=== PATIENT | male | born 1960 | race Caucasian/White ===

== ENCOUNTER 2017-08-28 15:01 | Observation (INO) ==
--- NOTE | 2017-08-28 15:13 | Emergency Department Note ---
Disposition Clinical Impression: Chest pain Qualifiers: Chest pain type: unspecified Qualified Code(s): R07.9 - Chest pain, unspecified Altered mental status Qualifiers: Altered mental status type: delirium Qualified Code(s): R41.0 - Disorientation , unspecified Alcohol intoxication Qualifiers: Complication of substance-induced condition: with delirium Qualified Code(s): F10.921 - Alcohol use, unspecified with intoxication delirium Disposition: Admitted As Inpatient Condition: Fair Time of Disposition: 18:31 General Adult HPI - General Chief complaint: ED Chest Pain Stated complaint: chest pain, ETOH Time Seen by Provider: 08/28/17 15:12 Source: patient Limitations: no limitations Nursing Notes Reviewed: Yes Vital Signs Reviewed: Yes - History of Present Illness HPI Narrative: Patient planning of chest pressure that started earlier today. Radiates to his left arm. States he is extremely intoxicated has been drinking all day today. He did shortness of breath along with this. No abdominal pain. No nausea vomiting diarrhea. Pain Scale: 6 - Related Data Home Medications Medication Instructions Recorded Confirmed Pregabalin [Lyrica] 75 mg PO BID PRN 08/28/17 08/28/17 Allergies Allergy/AdvReac Type Severity Reaction Status Date / Time amlodipine AdvReac See Verified 08/28/17 15:04 Comments sumatriptan [From Imitrex] AdvReac See Verified 08/28/17 15:04 Comments All systems ED: reviewed and negative except as stated. Constitutional: Denies: fever, chills ENT ED: Denies: congestion Cardiovascular: Reports: chest pain. Denies: palpitations, dyspnea on exertion , syncope Respiratory: Reports: dyspnea. Denies: cough, wheezes Gastrointestinal: Denies: abdominal pain, nausea, vomiting, diarrhea Genitourinary: Denies: urgency, dysuria, frequency Musculoskeletal: Denies: back pain, neck pain Integumentary: Denies: rash Neurological: Denies: weakness Past Medical History - Past Medical History Attestation: Yes The following information was validated with the patient. Source: patient Medical history: Reports: hypertension, liver disease Psychiatric history: Reports: anxiety, depression - Social History Smoking Status: Never smoker Smokeless Tobacco Status: No Alcohol use: Reports: heavy, recent Drug use: Reports: none Physical Exam - General Limitations: other (Frequently does not answer my questions. Hard to get a straight story from.) General appearance: alert, in no apparent distress, appears intoxicated - Head Head exam: atraumatic, normocephalic, normal inspection - Expanded Head Exam Head exam physicial: Absent: laceration, abrasion, contusion - Eye Eye exam: Present: normal appearance, PERRL, EOMI - ENT ENT exam: normal exam, normal oropharynx, mucous membranes moist - Neck Neck exam: Present: normal inspection, full ROM, trachea midline - Chest Chest inspection: Present: normal inspection, symmetric chest wall rise - Respiratory Respiratory exam: Present: normal lung sounds bilaterally. Absent: respiratory distress, accessory muscle use - Cardiovascular Cardiovascular exam: Present: regular rate, normal rhythm, normal heart sounds - Abdominal Exam Abdominal exam: Present: soft, Non-Tender. Absent: distention, guarding, rigidity, organomegaly - Extremities Exam Extremities exam: Present: normal inspection, full ROM, normal capillary refill. Absent: tenderness, pedal edema - Back Exam Back exam: Present: normal inspection, full ROM. Absent: tenderness - Neurological Exam Neurological exam: Present: alert, oriented X3 - Psychiatric Psychiatric exam: Present: agitated - Skin Skin exam: Present: warm, dry, intact, normal color. Absent: rash Course Course Narrative: Male patient presenting to the emergency department complaining of a chest pressure sensation. States it feels like an elephant sitting on his chest. Is happened 6 months ago as well. He has no cardiac history however his brother had a massive heart attack in his 50s. He states his pain radiates up to his neck. Denies any nausea or vomiting. He reports a large amount of alcohol intake today. He reports a chronic cough. He is reports that it is due to allergies. He does take a baby aspirin every day. We will give him aspirin here as well as nitroglycerin trial him. - Reevaluation(s) Reevaluation #1: Patient is extremely intoxicated. Throughout his exam he frequently does not speak to me. His alcohol level is greater than 300. He has attempted to get up several times and fell. We will have a sitter placed beside the patient and place him in restraints. We will CT patient's head. Time: 16:29 Vital Signs Temperature 97.6 F 08/28/17 15:04 Pulse Rate 101 08/28/17 15:04 Respiratory Rate 20 08/28/17 15:04 Blood Pressure 153/110 08/28/17 15:04 O2 Sat by Pulse Oximetry 93 08/28/17 15:04 Temperature 98.4 F 08/29/17 18:25 Pulse Rate 113 08/29/17 18:25 Respiratory Rate 17 08/29/17 18:25 Blood Pressure 154/98 08/29/17 18:25 O2 Sat by Pulse Oximetry 94 08/29/17 18:25 Oxygen Delivery Oxygen Delivery Room Air Medical Decision Making - Medical Records Medical records reviewed: Yes I reviewed the patient's medical records. - Lab Data Lab results reviewed: Yes I reviewed the patient's lab results. Result diagrams: 08/29/17 03:53 08/29/17 03:53 Lab Results 08/28/17 08/28/17 08/28/17 Range/Units 15:31 15:31 17:01 WBC 5.4 (4.3-11.1) K/mcL RBC 4.76 (4.19-5.50) M/mcL Hgb 12.8 L (12.9-16.9) g/dL Hct 40.0 (37.5-50.1) % MCV 84.0 (83.0-100.0) fL MCH 26.9 L (28.0-33.3) pg MCHC 32.0 (31.6-35.5) g/dL RDW 19.1 H (11.5-14.5) % Plt Count 183 (140-400) K/mcL MPV 9.8 (9.4-12.4) fL Immature Gran % 0.2 (0-4) % Seg Neutrophils % 50.6 % Lymphocytes % 36.9 % Monocytes % 8.4 % Eosinophils % 2.8 % Basophils % 1.1 % Neutrophils # 2.7 (1.6-8.9) K/mcL Lymphocytes # 2.0 (0.6-4.6) K/mcL Monocytes # 0.5 (0.0-1.3) K/mcL Eosinophils # 0.2 (0.0-0.6) K/mcL Basophils # 0.1 (0.0-0.2) K/mcL Sodium 132 L (136-145) mEq/L Potassium 4.1 (3.5-5.1) mEq/L Chloride 102 (98-107) mEq/L Carbon Dioxide 22 L (23-29) mEq/L BUN 11 (6-20) mg/dL Creatinine 0.76 (0.70-1.30) mg/dL Est GFR ( Amer) > 60 (> 60) Est GFR (Non-Af Amer) > 60 (> 60) BUN/Creatinine Ratio 14 (6-26) Glucose 88 (70-105) mg/dL Calculated Osmolality 273 L (280-300) Calcium 8.7 (8.6-10.3) mg/dL Total Bilirubin 0.5 (0.3-1.0) mg/dL AST 58 H (13-39) Units/L ALT 44 (7-52) Units/L Alkaline Phosphatase 86 (34-104) Units/L Troponin I < 0.03 (< 0.04) ng/mL Serum Total Protein 7.7 (6.4-8.9) g/dL Albumin 4.3 (3.5-5.7) g/dL Globulin 3.4 (2.4-3.5) g/dL Albumin/Globulin Ratio 1.3 (1.1-2.2) Urine Opiates Screen Negative (Azxsbl=422) ng/mL Acetaminophen < 10 L (10-20) mcg/mL Ur Barbiturates Screen Negative (Atubwd=745) ng/mL Ur Phencyclidine Scrn Negative (Cutoff=25) ng/mL Ur Amphetamines Screen Negative (Vuqcqv=4917) ng/mL U Benzodiazepines Scrn Positive H (Zblqzy=062) ng/mL Urine Cocaine Screen Negative (Cutoff= 300) ng/mL U Marijuana (THC) Screen Negative (Cutoff = 50) ng/mL Ethyl Alcohol 321 H (Less than 10) mg/dL - Radiology Data Radiology results reviewed: Yes I reviewed the patient's radiology results. Chest X-Ray 08/28/17 15:13 IMPRESSION: No acute findings. D/ / Yuri Solis / Yuri Solis Interpreting Provider: Yuri Solis Head CT 08/28/17 16:28 IMPRESSION: No acute intracranial abnormality. Nasal bone fracture possibly acute. Clinical correlation is recommended. D/ / Dany Urban MD / Dany Urban MD Interpreting Provider: Dany Urban MD - EKG Data EKG #1 EKG attestation: Yes I reviewed and interpreted this EKG. EKG results narrative: Normal sinus rhythm at a rate of 95. NH interval is 166. QRS duration is 97. QTC is 352. QTC is 45. No signs of acute ischemia. No previous EKG to compare to.
[2017-08-28] MEDS ORDERED: Aspirin 81 MG TAB.CHEW PO STA (15:14)
--- NOTE | 2017-08-28 15:29 | Emergency Department Note ---
Disposition Clinical Impression: Chest pain Qualifiers: Chest pain type: unspecified Qualified Code(s): R07.9 - Chest pain, unspecified Altered mental status Qualifiers: Altered mental status type: unspecified Qualified Code(s): R41.82 - Altered mental status, unspecified Alcohol intoxication Qualifiers: Complication of substance-induced condition: uncomplicated Qualified Code(s): F10.920 - Alcohol use, unspecified with intoxication, uncomplicated Disposition: Admitted As Inpatient Condition: Fair Referrals: Ever Valdez MD [Family Provider] - NONE,PCP [Primary Care Provider] - Forms: ED Satisfaction Letter General Adult HPI - General Chief complaint: ED Chest Pain Stated complaint: chest pain, ETOH Time Seen by Provider: 08/28/17 15:12 Source: patient Limitations: no limitations Nursing Notes Reviewed: Yes Vital Signs Reviewed: Yes - History of Present Illness Pain Scale: 6 - Related Data Home Medications Medication Instructions Recorded Confirmed Pregabalin [Lyrica] 75 mg PO BID PRN 08/28/17 08/28/17 Allergies Allergy/AdvReac Type Severity Reaction Status Date / Time amlodipine AdvReac See Verified 08/28/17 15:04 Comments sumatriptan [From Imitrex] AdvReac See Verified 08/28/17 15:04 Comments Past Medical History - Past Medical History Medical history: Reports: hypertension, liver disease Psychiatric history: Reports: anxiety, depression - Social History Smoking Status: Never smoker Smokeless Tobacco Status: No Alcohol use: Reports: heavy, recent Drug use: Reports: none Physical Exam - General Limitations: no limitations General appearance: alert Course Vital Signs Temperature 97.6 F 08/28/17 15:04 Pulse Rate 101 08/28/17 15:04 Respiratory Rate 20 08/28/17 15:04 Blood Pressure 153/110 08/28/17 15:04 O2 Sat by Pulse Oximetry 93 08/28/17 15:04 Temperature 97.6 F 08/28/17 15:04 Pulse Rate 86 08/28/17 18:00 Respiratory Rate 20 08/28/17 18:00 Blood Pressure 114/78 08/28/17 18:00 O2 Sat by Pulse Oximetry 95 08/28/17 18:00 Oxygen Delivery Oxygen Delivery Room Air Medical Decision Making - MDM Narrative Medical decision making narrative: This documentation is done with the assistance of Dragon dictation. Despite efforts made to ensure accuracy, there may be inaccuracies in medical observer or spelling and typographical errors. I examined this patient and my medical decision-making was reviewed with the Resident Physician. I agree with the documented findings, disposition and treatment plan as described except to the extent set forth below. Patient seen and arrival with Dr. Fuller and myself, I agree with his valuation management plan supervise care the patient's stay. Patient's intoxicated he says he drinks 16-20 beers a day and has chest pressure. He is a poor historian. We will order labs and recheck he will most likely need admission. He is in agreement with plan. EKG and cardiac workup in process. 1630 hrs. Patient got up and and slipped on urine that he repeat on the floor. We are going to place him in soft restraints for his own protection have a sitter. Is not homicidal or suicidal also were not going to do a pink slip on him, where a CT his had also wait for his labs and then he will need admission. Chest X-Ray 08/28/17 15:13 IMPRESSION: No acute findings. D/ / Yuri Solis / Yuri Solis Interpreting Provider: Yuri Solis Chest X-Ray 08/28/17 15:13 IMPRESSION: No acute findings. D/ / Yuri Solis / Yuri Solis Interpreting Provider: Yuri Solis Head CT 08/28/17 16:28 IMPRESSION: No acute intracranial abnormality. Nasal bone fracture possibly acute. Clinical correlation is recommended. D/ / Dany Urban MD / Dany Urban MD Interpreting Provider: Dany Urban MD Impression is chest pain rule out ACS with alcohol intoxication. Patient's critical care time excluding separately billable procedures is 45 minutes. - Lab Data Result diagrams: 08/28/17 15:31 08/28/17 15:31 Lab Results 08/28/17 08/28/17 08/28/17 Range/Units 15:31 15:31 17:01 WBC 5.4 (4.3-11.1) K/mcL RBC 4.76 (4.19-5.50) M/mcL Hgb 12.8 L (12.9-16.9) g/dL Hct 40.0 (37.5-50.1) % MCV 84.0 (83.0-100.0) fL MCH 26.9 L (28.0-33.3) pg MCHC 32.0 (31.6-35.5) g/dL RDW 19.1 H (11.5-14.5) % Plt Count 183 (140-400) K/mcL MPV 9.8 (9.4-12.4) fL Immature Gran % 0.2 (0-4) % Seg Neutrophils % 50.6 % Lymphocytes % 36.9 % Monocytes % 8.4 % Eosinophils % 2.8 % Basophils % 1.1 % Neutrophils # 2.7 (1.6-8.9) K/mcL Lymphocytes # 2.0 (0.6-4.6) K/mcL Monocytes # 0.5 (0.0-1.3) K/mcL Eosinophils # 0.2 (0.0-0.6) K/mcL Basophils # 0.1 (0.0-0.2) K/mcL Sodium 132 L (136-145) mEq/L Potassium 4.1 (3.5-5.1) mEq/L Chloride 102 (98-107) mEq/L Carbon Dioxide 22 L (23-29) mEq/L BUN 11 (6-20) mg/dL Creatinine 0.76 (0.70-1.30) mg/dL Est GFR ( Amer) > 60 (> 60) Est GFR (Non-Af Amer) > 60 (> 60) BUN/Creatinine Ratio 14 (6-26) Glucose 88 (70-105) mg/dL Calculated Osmolality 273 L (280-300) Calcium 8.7 (8.6-10.3) mg/dL Total Bilirubin 0.5 (0.3-1.0) mg/dL AST 58 H (13-39) Units/L ALT 44 (7-52) Units/L Alkaline Phosphatase 86 (34-104) Units/L Troponin I < 0.03 (< 0.04) ng/mL Serum Total Protein 7.7 (6.4-8.9) g/dL Albumin 4.3 (3.5-5.7) g/dL Globulin 3.4 (2.4-3.5) g/dL Albumin/Globulin Ratio 1.3 (1.1-2.2) Urine Opiates Screen Negative (Afneky=707) ng/mL Acetaminophen < 10 L (10-20) mcg/mL Ur Barbiturates Screen Negative (Mcpgqo=219) ng/mL Ur Phencyclidine Scrn Negative (Cutoff=25) ng/mL Ur Amphetamines Screen Negative (Toqpks=5175) ng/mL U Benzodiazepines Scrn Positive H (Czgvti=795) ng/mL Urine Cocaine Screen Negative (Cutoff= 300) ng/mL U Marijuana (THC) Screen Negative (Cutoff = 50) ng/mL Ethyl Alcohol 321 H (Less than 10) mg/dL
[2017-08-28] MEDS ORDERED: Nitroglycerin 0.4 MG TAB.SUBL SL PRN (15:30)
[2017-08-28] MEDS: 0.9 % Sodium Chloride 1,000 ML IVC SCH ×2 (15:37→22:22)
[2017-08-28 15:42] LABS: Basophils # 0.1 K/mcL (0.0-0.2); Basophils % 1.1 %; Eosinophils # 0.2 K/mcL (0.0-0.6); Eosinophils % 2.8 %; Hemoglobin 12.8 g/dL (12.9-16.9); Immature Granulocytes % 0.2 % (0-4); Lymphocytes % 36.9 %; Mean Corpuscular Hemoglobin 26.9 pg (28.0-33.3); Mean Platelet Volume 9.8 fL (9.4-12.4); Monocytes # 0.5 K/mcL (0.0-1.3); Monocytes % 8.4 %; Neutrophils # 2.7 K/mcL (1.6-8.9); Platelet Count 183 K/mcL (140-400); Red Blood Count 4.76 M/mcL (4.19-5.50); Red Cell Distribution Width 19.1 % (11.5-14.5); Segmented Neutrophils % 50.6 %
[2017-08-28 16:13] LABS: Acetaminophen < 10 mcg/mL (10-20); Alanine Aminotransferase 44 Units/L (7-52); Albumin 4.3 g/dL (3.5-5.7); Albumin/Globulin Ratio 1.3 (1.1-2.2); Alkaline Phosphatase 86 Units/L (34-104); Aspartate Amino Transferase 58 Units/L (13-39); BUN/Creatinine Ratio 14 (6-26); Bilirubin,Total 0.5 mg/dL (0.3-1.0); Blood Urea Nitrogen 11 mg/dL (6-20); Calcium 8.7 mg/dL (8.6-10.3); Carbon Dioxide 22 mEq/L (23-29); Chloride 102 mEq/L (98-107); Ethanol 321 mg/dL (Less than 10); Globulin 3.4 g/dL (2.4-3.5); Glucose 88 mg/dL (70-105); Osmolality,Calculated 273 (280-300); Potassium 4.1 mEq/L (3.5-5.1); Sodium 132 mEq/L (136-145); Total Protein 7.7 g/dL (6.4-8.9); Troponin I < 0.03 ng/mL (< 0.04); eGFR For African Americans > 60 (> 60); eGFR For Non-African Americans > 60 (> 60)
[2017-08-28] MEDS ORDERED: Ammonia Inhalant AMPUL ONE (16:28)
[2017-08-28] MEDS ORDERED: Haloperidol Lactate 5 MG/ML VIAL IVP ONE (16:42)
[2017-08-28] MEDS ORDERED: *HR* Midazolam HCl 2 MG/2 ML VIAL IVP ONE (16:42)
[2017-08-28 17:33] LABS: Amphetamine Screen,Urine Negative ng/mL (Cutoff=1000); Barbiturate Screen,Urine Negative ng/mL (Cutoff=200); Benzodiazepines Screen,Urine Positive ng/mL (Cutoff=200); Cannabinoid Screen,Urine Negative ng/mL (Cutoff = 50); Cocaine Screen,Urine Negative ng/mL (Cutoff= 300); Opiate Screen,Urine Negative ng/mL (Cutoff=300); Phencyclidine Screen,Urine Negative ng/mL (Cutoff=25)
[2017-08-28] MEDS ORDERED: Naloxone 0.4 MG/ML INJ IVP PRN (21:25)
[2017-08-28] MEDS ORDERED: *HR* Promethazine 25 MG/ML VIAL IVP PRN (21:25)
--- NOTE | 2017-08-28 21:43 | Internal Med History&Physical ---
Date of Encounter: 08/28/17 Time of Encounter: 19:30 Assessment and Plan (1) Chest pain Current visit: Yes Status: Acute Will place the pt into Tele for observation Will place pt on cardiac rehabilitation specialist check serial troponin so far negative troponin EKG reviewed - no acute ischemic changes noticed will start pt on ASA and Nitro PRN for pain Will check FLP in AM Will get stress test in AM since pt is high risk for ACS with age, HTN and FH of CT Qualifiers: Chest pain type: unspecified Qualified Code(s): R07.9 - Chest pain, unspecified (2) Alcohol intoxication Current visit: Yes Status: Acute His Alcohol level 321 Counseled to quit drinking started him on CIWA protocol IV hydration Thiamine and Folic acid PO Also started him on KEV Librium SW consulted to discuss with pt about rehab opportunities Qualifiers: Complication of substance-induced condition: with delirium Qualified Code(s ): F10.921 - Alcohol use, unspecified with intoxication delirium (3) Altered mental status Current visit: Yes Status: Acute due to toxic encephalopathy with alcohol intoxication improved now no need of sitter or restrains at this point cont close monitoring Qualifiers: Altered mental status type: delirium Qualified Code(s): R41.0 - Disorientation, unspecified Internal Medicine - H&P: HPI Chief complaint: Chest pain, Alcohol intoxication Admitted From: Emergency Dept Plans for Post Hospital Care: Home History of present illness: Mr. Lerner is a 57 year old male with a known past medical history of peripheral neuropathy, depression and chronic alcohol dependence who presented emergency room today complaining about acute left chest wall pain 8/10 in severity, non radiating and felt like an elephant was sitting on his chest. Pt also c/o lately he has been drinking heavily, when he came to ER he was heavily intoxicated with blood alcohol level @ 321. Initially he was delirious, agitated and combative in the ER. Pt was placed on 4 point restrain and have sitter at bed side. Now he is more alert, awake and O x 3, denied any CP actively. Denied any N/V, and abdominal pain. He did mention from last 2- 3 weeks he has been having some intermittent chest pain for which he wanted to go to [facility] today. Past Med Surg Social Fam HX - Past Medical History Medical history: hypertension, liver disease Psychiatric history: anxiety, depression - Past Surgical History Surgical History: no surgical history - Social History Smoking Status: Never smoker Smokeless Tobacco Status: No Alcohol use: heavy, recent Drug use: none - Family History Brother Hx Family Cardiac Disorders: Yes (Had CT when he was 54) Internal Medicine - H&P: Meds Pregabalin [Lyrica] 75 mg PO BID PRN 08/28/17 [History] 3 Allergy/AdvReac Type Severity Reaction Status Date / Time amlodipine AdvReac See Verified 08/28/17 15:04 Comments sumatriptan [From Imitrex] AdvReac See Verified 08/28/17 15:04 Comments All Systems PM: A 10-system review of systems was performed and is negative for pertinent findings except as documented above in the HPI. Review of systems: All the systems are reviewed everything is benign except the systems and symptoms I mentioned in the history of present illness - Constitutional Vitals: Temp Pulse Resp BP Pulse Ox 98.0 F 86 16 128/81 96 08/28/17 21:15 08/28/17 21:15 08/28/17 21:15 08/28/17 21:15 08/28/17 21:15 General appearance: Present: cooperative, A&O X 3, answers questions appropriately - Head Head exam: Present: atraumatic, normal inspection - Neck Neck exam general surgery: Present: supple - Respiratory Respiratory exam: Present: decreased breath sounds. Absent: chest wall tenderness, rales, respiratory distress, rhonchi, wheezes - Cardiovascular Cardiovascular exam: Present: RRR, +S1, +S2 - GI/Abdominal GI/Abdominal exam: Present: normal bowel sounds, soft. Absent: rebound, rigid, tenderness - Extremities Exam Extremities exam: Absent: calf tenderness, pedal edema, tenderness - Back Exam Back exam: Absent: CVA tenderness (L), CVA tenderness (R) - Neurological Exam Neurological exam: Present: alert, oriented X3 - Psychiatric Psychiatric exam: Present: anxious - Skin Skin exam: Absent: rash Internal Med - H&P Results - Labs CBC & Chem 7: 08/28/17 15:31 08/28/17 15:31
[2017-08-28] MEDS: Thiamine (B-1) 100 MG TABLET PO SCH (22:22)
[2017-08-28] MEDS: Aspirin Enteric Coated 81 MG Tablet PO SCH (22:22)
[2017-08-28] MEDS: *HR* HYDROcodone/Acet 5/325 mg TABLET PO PRN (22:44)
[2017-08-28] MEDS: *HR* LORazepam 1 MG TABLET PO PRN (22:49)
[2017-08-29] MEDS: Pregabalin 75 MG CAPSULE PO PRN ×3 (00:02→20:30)
[2017-08-29] MEDS: *HR* LORazepam 2 MG/ML VIAL IVP SCH ×7 (00:02→23:41)
[2017-08-29] MEDS: Acetaminophen 325 MG TABLET PO PRN (00:04)
[2017-08-29 05:51] LABS: Basophils # 0.1 K/mcL (0.0-0.2); Basophils % 1.1 %; Eosinophils # 0.1 K/mcL (0.0-0.6); Eosinophils % 2.4 %; Hematocrit 35.3 % (37.5-50.1); Immature Granulocytes % 0.2 % (0-4); Lymphocytes # 1.9 K/mcL (0.6-4.6); Mean Corpuscular HGB Conc 31.7 g/dL (31.6-35.5); Mean Corpuscular Hemoglobin 26.9 pg (28.0-33.3); Mean Corpuscular Volume 84.9 fL (83.0-100.0); Mean Platelet Volume 10.5 fL (9.4-12.4); Monocytes # 0.4 K/mcL (0.0-1.3); Monocytes % 9.3 %; Platelet Count 169 K/mcL (140-400); Red Blood Count 4.16 M/mcL (4.19-5.50); Red Cell Distribution Width 19.6 % (11.5-14.5)
[2017-08-29 05:54] LABS: Hemoglobin 11.2 g/dL (12.9-16.9)
[2017-08-29] MEDS ORDERED: Regadenoson 0.4 MG/5 ML SYRINGE IVP ONE (05:55)
[2017-08-29 06:16] LABS: Alanine Aminotransferase 37 Units/L (7-52); Albumin 3.8 g/dL (3.5-5.7); Albumin/Globulin Ratio 1.2 (1.1-2.2); Alkaline Phosphatase 74 Units/L (34-104); Aspartate Amino Transferase 42 Units/L (13-39); BUN/Creatinine Ratio 15 (6-26); Bilirubin,Total 0.5 mg/dL (0.3-1.0); Blood Urea Nitrogen 13 mg/dL (6-20); Calcium 8.6 mg/dL (8.6-10.3); Carbon Dioxide 21 mEq/L (23-29); Chloride 108 mEq/L (98-107); Chol/HDL Ratio 2.3 (0-4.9); Cholesterol 141 mg/dL (< 200); Globulin 3.1 g/dL (2.4-3.5); Glucose 72 mg/dL (70-105); HDL Cholesterol 61 mg/dL (40-59); LDL Cholesterol,Calculated 42 mg/dL (0-99); Magnesium 2.1 mg/dL (1.6-2.6); Osmolality,Calculated 287 (280-300); Potassium 4.2 mEq/L (3.5-5.1); Sodium 139 mEq/L (136-145); Total Protein 6.9 g/dL (6.4-8.9); Triglycerides 188 mg/dL (< 150); eGFR For African Americans > 60 (> 60); eGFR For Non-African Americans > 60 (> 60)
[2017-08-29] MEDS: 0.9 % Sodium Chloride 1,000 ML IVC SCH ×2 (06:24→18:34)
[2017-08-29] MEDS: Folic Acid 1 MG TABLET PO SCH (09:30)
[2017-08-29] MEDS: Aspirin Enteric Coated 81 MG Tablet PO SCH (09:30)
[2017-08-29] MEDS: Thiamine (B-1) 100 MG TABLET PO SCH (09:30)
[2017-08-29] MEDS: *HR* HYDROcodone/Acet 5/325 mg TABLET PO PRN ×2 (11:02→18:34)
--- NOTE | 2017-08-29 14:37 | Internal Med Progress Note ---
Date of Encounter: 08/29/17 Time of Encounter: 14:30 - Assessment and plan (1) Alcohol intoxication Current Visit: Yes Status: Acute Assessment and plan: Daily drinker; patient reported drinking 20-16 ounce beers daily. Last drink day of arrival; BAL 321. Previous history of EtOH withdrawal with seizures. Expresses desire to quit drinking. Continue to monitor with CIWA. Cont librium , thiamine, folic acid. Qualifiers: Complication of substance-induced condition: with delirium Qualified Code(s ): F10.921 - Alcohol use, unspecified with intoxication delirium (2) Chest pain Current Visit: Yes Status: Acute Assessment and plan: serial troponin negative, EKG without acute ST changes. Stress test with fixed apical inferior wall defect with mild worsening during stress; mild reversible ischemia could not be excluded. Cont ASA, statin, monitor on tele. Cardiology consulted Qualifiers: Chest pain type: unspecified Qualified Code(s): R07.9 - Chest pain, unspecified (3) Altered mental status Current Visit: Yes Status: Acute Assessment and plan: Secondary to acute alcohol intoxication. Head CT non-acute. Mentation improved to baseline. No further workup indicated at this time. Supportive care. Qualifiers: Altered mental status type: delirium Qualified Code(s): R41.0 - Disorientation, unspecified (4) DVT prophylaxis Current Visit: Yes Status: Acute - Time Spent With Patient Total time spent is greater than 50% in coordination of care (as documented) at patient's floor/unit and/or counseling patient: - Subjective Interval history: Seen and examined at bedside. Patient is new to me, information obtained from chart review and patient report. Says he is feeling shaky and jittery, feels like he is in withdrawal. Last drink day of arrival. He also reports previous history of alcohol withdrawal with seizure activity. No chest pain or shortness of breath. - Constitutional Vitals: Temp Pulse Resp BP Pulse Ox 98.0 F 106 16 155/87 96 08/29/17 10:50 08/29/17 10:50 08/29/17 10:50 08/29/17 10:50 08/29/17 10:50 General appearance: Present: cooperative, A&O X 3, answers questions appropriately - Head Head exam: Present: atraumatic, normocephalic - Eye Eye exam: Present: PERRL, conjuntiva pink, sclera anicteric Pupils: Present: PERRL - Neck Neck exam general surgery: Present: supple, trachea midline. Absent: lymphadenopathy - Respiratory Respiratory exam: Present: CTAB. Absent: accessory muscle use, rales, rhonchi, wheezes - Cardiovascular Cardiovascular exam: Present: RRR, +S1, +S2. Absent: diastolic murmur, gallop, rubs, systolic murmur - GI/Abdominal GI/Abdominal exam: Present: normal bowel sounds, soft, no peritoneal signs. Absent: distended, tenderness - Extremities Exam Extremities exam: Present: warm, radial pulses palpable and symmetrical. Absent : calf tenderness, cyanotic, pedal edema - Neurological Exam Neurological exam: Present: CN II-XII intact, oriented X3, no focal deficits. Absent: pronater drift, facial droop, speech deficit - Skin Skin exam: Present: dry, intact Internal Medicine: Result - Labs CBC & Chem 7: 08/29/17 03:53 08/29/17 03:53 Labs: Short CBC 08/29/17 Range/Units 03:53 WBC 4.5 (4.3-11.1) K/mcL Hgb 11.2 L D (12.9-16.9) g/dL Hct 35.3 L (37.5-50.1) % Plt Count 169 (140-400) K/mcL Neutrophils # 2.0 (1.6-8.9) K/mcL BMP 08/29/17 03:53 Sodium 139 Potassium 4.2 Chloride 108 H Carbon Dioxide 21 L BUN 13 Creatinine 0.85 Glucose 72 Calcium 8.6 Cardiac Enzymes 08/28/17 08/29/17 Range/Units 21:50 03:53 Troponin I < 0.03 < 0.03 (< 0.04) ng/mL Liver Function 08/29/17 Range/Units 03:53 Total Bilirubin 0.5 (0.3-1.0) mg/dL AST 42 H (13-39) Units/L ALT 37 (7-52) Units/L Alkaline Phosphatase 74 (34-104) Units/L Albumin 3.8 (3.5-5.7) g/dL Consult Discharge Plan - Plan Referrals: NONE,PCP [Primary Care Provider] - Ever Valdez MD [Family Provider] -
[2017-08-29] MEDS: *HR* LORazepam 1 MG TABLET PO PRN (18:34)
--- NOTE | 2017-08-29 19:23 | Electrocardiograph Report ---
[place] [id number] Test Date: 2017-08-28 Pat Name: Dangelo Lerner Department: 103 Room: 3B11 Gender: M [employer]: : 1960 Requested By: Salvatore Stein Order Number: [id number] Reading MD: See Bird Measurements Intervals [place] Rate: 95 P: 11 MI: 166 QRS: -18 QRSD: 97 T: 12 QT: 352 QTc: 405 Interpretive Statements SINUS RHYTHM Electronically Signed On 08-29-2017 19:22:31 EDT by See Bird
[2017-08-29] MEDS: *HR* Heparin 5,000 UNIT/ML VIAL SQ SCH (20:18)
[2017-08-30] MEDS: *HR* HYDROcodone/Acet 5/325 mg TABLET PO PRN ×3 (01:27→21:56)
[2017-08-30] MEDS: *HR* LORazepam 1 MG TABLET PO PRN ×2 (01:32→21:55)
[2017-08-30] MEDS ORDERED: *HR* LORazepam 2 MG/ML VIAL IVP PRN ×2 (02:41)
[2017-08-30] MEDS: *HR* LORazepam 2 MG/ML VIAL IVP PRN ×2 (02:58→11:16)
[2017-08-30] MEDS: 0.9 % Sodium Chloride 1,000 ML IVC SCH (05:07)
[2017-08-30] MEDS: *HR* Heparin 5,000 UNIT/ML VIAL SQ SCH ×3 (05:08→22:02)
[2017-08-30] MEDS: Aspirin Enteric Coated 81 MG Tablet PO SCH (08:30)
[2017-08-30] MEDS: Folic Acid 1 MG TABLET PO SCH (08:30)
[2017-08-30] MEDS: Thiamine (B-1) 100 MG TABLET PO SCH (08:30)
[2017-08-30 08:51] LABS: Estimated Average Glucose 103 mg/dl; Hemoglobin A1C 5.2 %
[2017-08-30] MEDS ORDERED: Metoprolol XL (24 HR) Succ 25 MG TAB.ER.24H PO SCH (09:00)
--- NOTE | 2017-08-30 10:30 | Internal Med Progress Note ---
Date of Encounter: 08/30/17 Time of Encounter: 10:26 - Assessment and plan (1) Alcohol intoxication Current Visit: Yes Status: Acute Assessment and plan: Daily drinker; patient reported drinking 20-16 ounce beers daily. Last drink day of arrival; BAL 321. Previous history of EtOH withdrawal with seizures. Expresses desire to quit drinking. Continue to monitor with CIWA. Cont thiamine , folic acid. Qualifiers: Complication of substance-induced condition: with delirium Qualified Code(s ): F10.921 - Alcohol use, unspecified with intoxication delirium (2) Chest pain Current Visit: Yes Status: Acute Assessment and plan: presented with chest pain and SOB. No Known CAD. serial troponin negative, EKG without acute ST changes. Stress test with fixed apical inferior wall defect with mild worsening during stress; mild reversible ischemia could not be excluded. Cont ASA, BB, statin, monitor on tele. Cardiology consulted Qualifiers: Chest pain type: unspecified Qualified Code(s): R07.9 - Chest pain, unspecified (3) Essential hypertension Current Visit: Yes Status: Acute Assessment and plan: per hx. BP controlled, likely secondary to not having home medications. Resume home BB. Monitor BP and titrate PRN (4) Altered mental status Current Visit: Yes Status: Acute Assessment and plan: Secondary to acute alcohol intoxication. Head CT non-acute. Mentation improved to baseline. No further workup indicated at this time. Supportive care. Qualifiers: Altered mental status type: delirium Qualified Code(s): R41.0 - Disorientation, unspecified (5) DVT prophylaxis Current Visit: Yes Status: Acute Assessment and plan: heparin - Time Spent With Patient Total time spent is greater than 50% in coordination of care (as documented) at patient's floor/unit and/or counseling patient: - Subjective Interval history: Seen and examined at bedside. Patient is new to me, information obtained from chart review and patient report. Says he is feeling shaky and jittery, feels like he is in withdrawal. Last drink day of arrival. He also reports previous history of alcohol withdrawal with seizure activity. No chest pain or shortness of breath. - Constitutional Vitals: Temp Pulse Resp BP Pulse Ox 97.7 F 88 18 147/95 98 08/30/17 06:54 08/30/17 06:54 08/30/17 06:54 08/30/17 09:33 08/30/17 06:54 General appearance: Present: cooperative, A&O X 3, answers questions appropriately - Head Head exam: Present: atraumatic, normocephalic - Eye Eye exam: Present: PERRL, conjuntiva pink, sclera anicteric Pupils: Present: PERRL - Neck Neck exam general surgery: Present: supple, trachea midline. Absent: lymphadenopathy - Respiratory Respiratory exam: Present: CTAB. Absent: accessory muscle use, rales, rhonchi, wheezes - Cardiovascular Cardiovascular exam: Present: RRR, +S1, +S2. Absent: diastolic murmur, gallop, rubs, systolic murmur - GI/Abdominal GI/Abdominal exam: Present: normal bowel sounds, soft, no peritoneal signs. Absent: distended, tenderness - Extremities Exam Extremities exam: Present: warm, radial pulses palpable and symmetrical. Absent : calf tenderness, cyanotic, pedal edema - Neurological Exam Neurological exam: Present: CN II-XII intact, oriented X3, no focal deficits. Absent: pronater drift, facial droop, speech deficit - Skin Skin exam: Present: dry, intact Internal Medicine: Result - Labs CBC & Chem 7: 08/29/17 03:53 08/29/17 03:53 Consult Discharge Plan - Plan Referrals: Ever Valdez MD [Family Provider] - NONE,PCP [Primary Care Provider] -
--- NOTE | 2017-08-30 10:57 | Cardiology Consult Note ---
<Bigg Becerril - Last Filed: 08/30/17 10:50> Date of Encounter: 08/30/17 Time of Encounter: 10:50 Assessment and Plan (1) Abnormal stress test Current Visit: Yes Status: Acute Stress test showed primarily fixed apical inferior wall defect with mild worsening during stress. Mild reversible ischemia cannot be excluded. Gated EF 60%. Presents with typical chest pain symptoms--midsternal pressure with left side radiation, worse on exertion associated with nausea. Risk factors--HTN, HLD, family hx. Reports brother had TN at age 52 with 3 stents. States he had a LHC 6-7 years ago, reported 30% blockage at that time. Recommend [facility] to further evaluate--R/B/A discussed. Check TTE as well. Continue ASA, Statin, BB. (2) Alcohol dependence Current Visit: Yes Status: Acute Reports drinking 20+ 16 oz cans of beer/day. Gated EF on stress 60%. Check TTE. CIWA protocol. AST mildly elevated, ALT normal range. Qualifiers: Substance use status: unspecified alcohol-induced disorder Qualified Code(s ): F10.29 - Alcohol dependence with unspecified alcohol-induced disorder (3) Chest pain Current Visit: Yes Status: Acute As above, typical symptoms, abnormal stress test, plan for LHC today. Qualifiers: Chest pain type: unspecified Qualified Code(s): R07.9 - Chest pain, unspecified (4) Essential hypertension Current Visit: Yes Status: Acute Hypertensive, not currently at goal, but going through withdraws. Will adjust antihypertensives as necessary. Discussion w patient/family: The assessment and plan as outlined above was discussed with the patient and/or family members who expressed understanding and agreement. All questions were answered. Thank you for involving us in the care of your patient. Please call with any questions. I will discuss all the above with Dr. Galvin and make changes as necessary. History of Present Illness Consult date: 08/30/17 Requesting physician: Wilma Potter Consult reason: abnormal stress test Chief complaint: chest pain History of present illness: Mr. Lerner is a 57 year old male with PMH of peripheral neuropathy, depression , HTN, HLD and chronic alcohol dependence that drinks 20+ 16 oz cans of beer/ day who presented to ED with chief complaint of midsternal pain radiating to left side of neck associated with nausea. ETOH level 321 in ED. Initially he was delirious, agitated and combative in the ER. Pt was placed on 4 point restrain and have sitter at bed side. Now he is alert, awake and O x 3, denies any CP actively. Reports the chest pain was intermittent for a few days prior to admission, worse on exertion and improved with rest. Reports he had a LHC 6- 7 years ago with a 30% blockage. States his brother had a massive TN at age 52 with 3 stents. Troponins negative. Stress test obtained--primarily fixed apical inferior wall defect with mild worsening during stress. Mild reversible ischemia cannot be excluded. Gated EF 60%. Cardiology consulted for further recommendations. Past Med Surg Social Fam HX - Past Medical History Medical history: hypertension, liver disease Psychiatric history: anxiety, depression - Past Surgical History Surgical History: no surgical history - Social History Smoking Status: Never smoker Smokeless Tobacco Status: No Alcohol use: heavy, recent Drug use: none - Family History Brother Hx Family Cardiac Disorders: Yes (Had TN when he was 52) Medications and Allergies Pregabalin [Lyrica] 75 mg PO BID PRN 08/28/17 [History] 3 Allergy/AdvReac Type Severity Reaction Status Date / Time amlodipine AdvReac See Verified 08/28/17 15:04 Comments sumatriptan [From Imitrex] AdvReac See Verified 08/28/17 15:04 Comments All Systems Review: The remainder of the systems were reviewed and are negative - Cardiovascular Cardiovascular: as per HPI, chest pain with exertion, dyspnea on exertion, radiating jaw, neck or arm pain - Gastrointestinal Gastrointestinal: nausea Physical Examination Vital Signs, Last 4 Hours Temp Pulse Resp BP Pulse Ox 08/30/17 09:33 147/95 08/30/17 06:54 97.7 F 88 18 166/110 98 Vital Signs Temp Pulse Resp BP Pulse Ox 08/30/17 09:33 147/95 08/30/17 06:54 97.7 F 88 18 166/110 98 08/30/17 02:54 98.3 F 90 17 158/102 94 08/29/17 23:32 97.4 F L 102 18 172/102 97 08/29/17 18:25 98.4 F 113 17 154/98 94 Intake and Output 08/29/17 08/30/17 08/30/17 23:59 07:59 15:59 Intake Total 240 / 240 1000 / 1000 480 / 480 Balance 240 / 240 1000 / 1000 480 / 480 Intake: IV Fluids 1000 / 1000 0.9 % Sodium Chloride 1,000 ML 1000 / 1000 @ 125 mls/hr IVC .Q8H [facility] Rx#: [id number] Oral 240 / 240 480 / 480 Other: Meal Dinner Breakfast Percent of Meal Consumed 100% 100% # Voids 1 Weight 112.4 kg Patient Weight 08/30/17 23:59 Weight 112.4 kg General: Conversant, No Apparent Distress HEENT: Atraumatic, Normocephaly, Mucus Membranes Moist Neck: No JVD, Normal carotid pulses Cardiac: Reg Rate and Rhythm, Normal S1 and S2, No Murmur Lungs: Normal Breath Sounds, No Wheeze, Rales, Rhonchi Neuro: Alert and responsive, No focal deficits noted Abdomen: Soft, Non-Tender Skin: No rashes noted on visualized skin Musculoskeletal: No Chest Wall Tenderness Extremities: Other (LLE >RLE ) Results 08/29/17 03:53 08/29/17 03:53 Active Medications Acetaminophen (Tylenol) 650 mg PO Q6HR PRN PRN Reason: Mild Pain/Fever Stop: 02/27/18 21:26 Last Admin: 08/29/17 00:04 Dose: 650 mg Hydrocodone Bitart/Acetaminophen ([place]e 5-325 Mg) 1 tab PO Q6HR PRN PRN Reason: Moderate Pain Stop: 02/27/18 21:26 Last Admin: 08/30/17 01:27 Dose: 1 tab Aspirin (Aspirin Ec) 81 mg PO DAILY [facility] Stop: 02/27/18 21:31 Last Admin: 08/30/17 08:30 Dose: 81 mg Atorvastatin Calcium (Lipitor) 10 mg PO HS [facility] Stop: 02/28/18 21:01 Last Admin: 08/29/17 20:17 Dose: 10 mg Carvedilol (Coreg) 12.5 mg PO BIDWM KEV PRN Reason: Protocol Stop: 03/01/18 17:01 Chlordiazepoxide HCl (Librium) 25 mg PO QID [facility] Stop: 02/28/18 09:01 Last Admin: 08/30/17 08:30 Dose: 25 mg Folic Acid (Folic Acid) 1 mg PO DAILY [facility] Stop: 02/28/18 09:01 Last Admin: 08/30/17 08:30 Dose: 1 mg Heparin Sodium (Porcine) (Heparin) 5,000 unit SQ Q8HCO [facility] Stop: 02/28/18 22:01 Last Admin: 08/30/17 05:08 Dose: 5,000 unit Hydralazine HCl (Hydralazine) 10 mg IVP Q6HR PRN PRN Reason: HTN: SBP>160 or DBP>100 Stop: 03/01/18 03:17 Last Admin: 08/30/17 08:30 Dose: 10 mg Lorazepam (Ativan) 1 mg PO Q3HR PRN PRN Reason: Anxiety Stop: 02/27/18 21:33 Last Admin: 08/30/17 01:32 Dose: 1 mg Lorazepam (Ativan) 1 mg IVP Q1H PRN PRN Reason: Alcohol Withdrawal Stop: 03/01/18 02:42 Lorazepam (Ativan) 2 mg IVP Q4HR PRN PRN Reason: CIWA Score of 10-21 Stop: 03/01/18 02:42 Last Admin: 08/30/17 02:58 Dose: 2 mg Lorazepam (Ativan) 4 mg IVP Q4HR PRN PRN Reason: CIWA Score of 22-45 Stop: 03/01/18 02:42 Naloxone HCl (Narcan) 0.4 mg IVP Q2MIN PRN PRN Reason: SEE COMMENTS Stop: 02/27/18 21:26 Nitroglycerin (Nitroglycerin) 0.4 mg SL Q5MIN PRN PRN Reason: Chest Pain Stop: 02/27/18 15:31 Ondansetron HCl (Zofran) 4 mg IVP Q8HR PRN PRN Reason: Nausea And Vomiting Stop: 02/27/18 21:26 Pregabalin (Lyrica) 75 mg PO BID PRN PRN Reason: NEUROPATHY Stop: 02/27/18 21:29 Last Admin: 08/29/17 20:30 Dose: 75 mg Promethazine HCl (Phenergan) 12.5 mg IVP Q6HR PRN PRN Reason: Nausea And Vomiting Stop: 02/27/18 21:26 Thiamine HCl (Vitamin B-1) 100 mg PO DAILY [facility] Stop: 02/27/18 21:31 Last Admin: 08/30/17 08:30 Dose: 100 mg - Imaging and Cardiology Stress Test: report reviewed - EKG Interpretation EKG results cardiology: personally reviewed (SR, rate 95, normal ECG.), other ( 12 hr tele AVG HR 92, SR, no significant pauses or arrhythmias) Consult Discharge Plan - Plan Referrals: Ever Valdez MD [Family Provider] - NONE,PCP [Primary Care Provider] - <Sourav Galvin - Last Filed: 08/30/17 13:03> Date of Encounter: 08/30/17 - Attending Attestation I have personally performed a face to face evaluation on this patient. I have reviewed and agree with the care plan. History and Exam by me shows: Typical angina with strong family hx and abnormal stress test R/B/A d/w patient and he agrees to procced with [facility] Assessment and Plan Discussion w patient/family: The assessment and plan as outlined above was discussed with the patient and/or family members who expressed understanding and agreement. All questions were answered. Thank you for involving us in the care of your patient. Please call with any questions. History of Present Illness History of present illness: Mr. Lerner is a 57 year old male All Systems Review: The remainder of the systems were reviewed and are negative Physical Examination Vital Signs, Last 4 Hours Temp Pulse Resp BP Pulse Ox 08/30/17 11:21 97.4 F L 94 18 176/108 98 08/30/17 11:18 98.3 F 67 20 121/63 97 08/30/17 09:33 147/95 Results 08/29/17 03:53 08/29/17 03:53 Lab Results 08/30/17 11:23 INR 1.1
[2017-08-30 12:05] LABS: INR 1.1; Prothrombin Time 11.6 Seconds (9.4-12.1)
[2017-08-30] MEDS ORDERED: *HR* Heparin 10,000 UNIT/10 ML VIAL ONE (15:10)
[2017-08-30] MEDS ORDERED: 0.9 % Sodium Chloride 1,000 ML ONE ×2 (15:10→15:44)
[2017-08-30] MEDS ORDERED: ISOVUE-370 200 ML INFUS..BTL IV ONE (15:10)
[2017-08-30] MEDS ORDERED: Heparin 1,000 UNITS/500 mL 500 ML ONE (15:10)
[2017-08-30] MEDS ORDERED: Verapamil 5 MG/2 ML VIAL ONE (15:53)
[2017-08-30] MEDS ORDERED: Nitroglycerin 1,000 MCG/10 ML VIAL IV ONE (15:53)
[2017-08-30] MEDS ORDERED: *HR* Midazolam HCl 2 MG/2 ML VIAL ONE ×2 (15:53→16:17)
[2017-08-30] MEDS ORDERED: *HR* FentaNYL (PF) 100 MCG/2 ML VIAL ONE (15:53)
--- NOTE | 2017-08-30 15:53 | Pre-Sedation Evaluation ---
Pre-sedation evaluation - Pre-sedation checklist Date of procedure: 08/30/17 Procedure: Heart cath Recent Vitals: Last Vital Signs Temp 97.4 F L 08/30/17 11:21 Pulse 94 08/30/17 11:21 Resp 18 08/30/17 11:21 BP 176/108 08/30/17 11:21 Pulse Ox 98 08/30/17 11:21 H&P (including ROS) documented in medical record: Yes Previous reaction to sedatives/anesthetics: No Dietary Status: No solid food in preceding 4 hrs and no liquid in preceding 2 hrs ASA Classification *see protocol: CLASS II-Mild systemic disease Plan of Care: Pt appropriate candidate for procedure/moderate/conscious sedation , Risks/benefits of procedure/sedation discussed w/ patient/family
--- NOTE | 2017-08-30 16:50 | Invasive Diagnostic Lab Proc ---
Name: Dangelo Lerner Date of Study: 08/30/2017 Date: 1960 Ht: 70.9in Medical Record#: [id number] Age: 57 Wt: 246.92lb Gender: Male BSA: 2.3 Order #: [id number] BMI: 34.57 Physicians Procedure Physician: See Bird MD, [facility] Referring MD: Referring MD: Staff Name Position Time In Ioana, Dieudonne ROGERS International Account Manager 03:22 PM Tonya Laughlin RT (R) Monitor 03:22 PM Christian Peraza RT (R) Scrub 03:23 PM Indications Indication Unstable Angina Procedures Performed Procedure L HRT ARTERY/VENTRICLE ANGIO Pre-Procedure Checklist Informed consent is complete signed and on chart. H&P is on chart. ID band is on and ID verified with patient. Patient NPO for procedure The procedure was described for the patient and questions were answered. ECG is on chart. Plan of Care Patient will tolerate the procedure without complications. Adequate level of comfort will be maintained. Hemodynamics will remain stable Patient will recover from procedure without complications. Respiratory function will be maintained. Cardiac rhythm will remain stable. Patient temperature will be maintained. Patient and/or family have verbalized understanding of the procedure. Patient Education Chief Complaint/Reason for Test: Cardiac Cath Developmental Category: Adult (18-64 years) Developmentally Appropriate for Age: Yes Learning Barriers: None Education Needs: Procedure Education Method: Verbal Information Taught: Cardiac Cath Educational Evaluation: Able to repeat information Intravenous Access Time IV Size Location DC'd Fluid/Drip Rate Units RN 20g 1 06/01" Patent On Arrival 0.9NaCl ml/hr Allergies amlodipine sumatriptan Vital Signs Time BP (mmHg) HR (bpm) O2 Sat. RR (bpm) LOC 176 / 108 94 98 % 18 5 = Fully awake and oriented or at pre-proc level 04:02 PM / % 5 = Fully awake and oriented or at pre-proc level 04:02 PM / % 5 = Fully awake and oriented or at pre-proc level 04:18 PM / % 5 = Fully awake and oriented or at pre-proc level 04:05 PM 177 / 107 80 99 % 9 04:09 PM 176 / 115 82 97 % 10 04:14 PM 180 / 108 80 99 % 10 04:19 PM 190 / 117 81 100 % 9 04:23 PM 169 / 109 89 98 % 14 04:24 PM 165 / 107 86 96 % 11 04:29 PM 165 / 101 90 99 % 12 Procedural Medications Time Medication Dose Units Method Given By 04:00 PM Oxygen 2 L/min nasal cannula Dieudonne Triplett RN 04:00 PM Versed 2 mg Intravenous Dieudonne Triplett RN 04:01 PM Fentanyl 50 mcg Intravenous Dieudonne Triplett RN 04:16 PM Lidocaine 2% 0.5 ml Subcutaneous See Bird MD, FAC 04:18 PM Versed 2 mg Intravenous Dieudonne Triplett RN 04:18 PM Fentanyl 25 mcg Intravenous Dieudonne Triplett RN 04:20 PM Heparin 4000 units Nitroglycerin 200 mcg Verapamil 2.5 mg Intraarterial See Bird MD, FAC 04:23 PM Hydralazine 10 mg Intravenous Dieudonne Triplett RN ASA Classification: CLASS II- Mild systemic disease (i.e. well-controlled diabetes, hypertension, asthma, cigarette smoking) Julia Score Preprocedure Postprocedure Activity 2- Moves 4 extremities sustained head lift Activity 2- Moves 4 extremities sustained head lift Circulation 2- SBP +/= 20 points of pre-anesthetic level Circulation 2- SBP +/= 20 points of pre-anesthetic level Consciousness 2- Awake and alert oriented x 3 Consciousness 2- Awake and alert oriented x 3 O2 Saturation 2- Able to maintain O2 satruation of 92% on room air O2 Saturation 2- Able to maintain O2 satruation of 92% on room air Respiratory 2- Able to deep breathe and cough well Respiratory 2- Able to deep breathe and cough well Total Score 10 Total Score 10 Contrast Agent: Isovue Diagnostic Contrast: 61 ml Total Contrast: 61 ml Fluoro Dose: 237 mGy Procedure Log Time Note Enter By 03:12 PM CathStat 03:22 PM Dieudonne Triplett RN Position: International Account Manager Time in: 15: [email or web address] 03:23 PM Tonya Laughlin RT (R) Position: Monitor Time in: : dspell 03:23 PM Christian Peraza RT (R) Position: Scrub Time in: 15:23 [email or web address] 03:23 PM Patient charges- Angio tray pack, Navilyst 3mm J, Pulse Oximetry and ACIST tubing and transducer [email or web address] 03:23 PM IV Supplies used: J loop Angio Cath. dspell 03:24 PM Case Delayed No,inpatient dspell 03:58 PM Physician arrived 15:58 :58 PM Meet and greet completed :58 PM Sign in performed according to hospital policy. :58 PM Procedure start 15:58 03:59 PM Case Start 03:59 PM Hair removed from procedure site in procedure lab using clippers. Right wrist, right groin prepped with Chloraprep by Tonya Laughlin RT (R), then patient was draped. Skin intact. 04:00 PM Time: 16:00 Oxygen on at 2 L/min per nasal cannula by Dieudonne Triplett RN : PM Time: 16:00 Versed 2 mg Intravenous Given by Dieudonne Triplett RN [facility]: PM Time: 16:01 Fentanyl 50 mcg Intravenous Given by Dieudonne Triplett RN [facility]:02 PM ASA Class CLASS II- Mild systemic disease (i.e. well-controlled diabetes, hypertension, asthma, cigarette smoking) PM Time: 16:02 Patient comfortable and pain free: Yes PM Time: 16:02LOC: 5 = Fully awake and oriented or at pre-proc level dsp 04:02 PM Clinical Presentation: Unstable angina 04:03 PM Vitals capture started with the following parameters, Patient=Adult, Interval=5 min, Initial Hiefybxc=848 mmHg, Deflation Rate=3 mmHg, Cuff placed on Right Arm 04:05 PM Pressure channel 1 zero failed. 04:05 PM HR=80 bpm, VKKU=270/107 mmhg, SpO2=99.0 %, Resp=9 B/min, Comment=NSR 04:05 PM Pressure channel 1 zeroed. 04:09 PM HR=82 bpm, XSNY=701/115 mmhg, SpO2=97.0 %, Resp=10 B/min, Comment=NSR 04:14 PM HR=80 bpm, HFRH=985/108 mmhg, SpO2=99.0 %, Resp=10 B/min, Comment=NSR 04:16 PM Time out performed according to hospital policy 16 PM Time: 16:16 0.5 ml Lidocaine 2% to right radial Subcutaneous Given by See Bird MD, [facility] :17 PM Time: 16:02 Patient comfortable and pain free: Yes adam:18 PM Time: 16:02LOC: 5 = Fully awake and oriented or at pre-proc level dsp:18 PM Time: 16:18 Versed 2 mg Intravenous Given by Dieudonne Triplett RN [email or web address] 04:18 PM Time: 16:18 Fentanyl 25 mcg Intravenous Given by Dieudonne Triplett RN kimi :19 PM Ultrasound used for access dspell:19 PM HR=81 bpm, QXVN=521/117 mmhg, CaR4=629.0 %, Resp=9 B/min, Comment=NSR 04:20 PM Access obtained by percutaneous puncture. 6Fr 10cm Terumo Glidesheath sheath placed in right Radial artery. [id number] : PM Time: 16:20 Patient given 4,000 units Heparin, 200 mcg Nitroglycerin, and 2.5 mg Verapamil Intraarterial by See Bird MD, [facility]. This is given to reduce risk of vessel spasm and thrombosis. : PM 5Fr TIG catheter inserted over the wire [facility] : PM NIBP STAT measurement started. 04:22 PM Pressure channel 1 zeroed. 04:23 PM Recorded Pressure: Ao, HR=88, Condition=Condition 1 (Aorta) Ao 166/110/136 04:23 PM HR=89 bpm, VUTK=438/109 mmhg, SpO2=98.0 %, Resp=14 B/min, Comment=NSR 04:23 PM Time: 16:23 Hydralazine 10 mg Intravenous Given by Dieudonne Triplett RN [facility]:24 PM LCA angiography performed in FRENCH views. :24 PM Recorded Pressure: Ao, HR=84, Condition=Condition 1 (Aorta) Ao 158/120/138 04:24 PM RCA angiography performed in multiple. dspell:24 PM HR=86 bpm, FEVQ=178/107 mmhg, SpO2=96.0 %, Resp=11 B/min, Comment=NSR 04:25 PM Catheter removed dspell:25 PM 5Fr FL 3.5 catheter inserted over the wire [facility] :25 PM LCA angiography performed in multiple views. ell: PM Recorded Pressure: Ao, HR=84, Condition=Condition 1 (Aorta) Ao 167/102/131 04:26 PM Recorded Pressure: Ao, HR=87, Condition=Condition 1 (Aorta) Ao 165/105/132 04:27 PM Lesion found in Proximal LAD. Pre Stenosis: 20 Pre RAYMUNDO Flow: 3: Complete and Brisk Flow/Perfusion dspell 04:27 PM Coronary Dominance: right [email or web address] 04:28 PM Recorded Pressure: LV, HR=89, Condition=Condition 1 (Left Ventricle) LV 175/4/24 04:28 PM Recorded Pressure: LV, Ao, HR=89, Condition=Condition 1 (Left Ventricle) LV 167/4/20, (Aorta) Ao 174/108/138 04:29 PM Catheter selectively placed in left ventricle dspell 04:29 PM HR=90 bpm, QWRD=896/101 mmhg, SpO2=99.0 %, Resp=12 B/min, Comment=NSR 04:30 PM Bolus angiogram of left Ventricle complete: 10 ml/sec for a total of 30 mls dspell 04:30 PM Catheter removed dspell 04:30 PM Procedure completed at 16:30 [email or web address] 04:30 PM Did you address RAYMUNDO flow and Dominance? Yes dspell 04:31 PM Sign out completed: Radiation Dose 236.79 mGy Fluoro Time: 2.1 Isovue 370 - 200ml contrast 61 ml given by See Bird MD, [facility]. Complications: NoneCardiac Rehab Consult needed: NoConfirmed administered medications: Yes dspell 04:31 PM Isovue 370 - 200ml,1 Bottle(s) used. dspell 04:31 PM Arterial sheath pulled, Vasc Band closure device used and was Successful S/N. dspell 04:31 PM 13 ml air in Vasc Band. dspell 04:31 PM Estimated Blood Loss: minimal dspell 04:31 PM Post ECG NSR dspellman 04:32 PM Post Blood Pressure 165/101 dspell 04:32 PM 16:32 Post Pulses Rt Radial 2+ dspell 04:32 PM Information taught Cardiac Cath and Vasc Band dspell 04:32 PM Education needs Procedure, Plan of Care, and Responsibilities of Patient in Care dspell 04:32 PM Learning barriers :None dspell 04:33 PM Education Methods Verbal dspell 04:33 PM Education evaluation Able to repeat information dspell 04:33 PM Site status No bleeding/hematoma - Rt Wrist as reported by Christian Peraza RT (R) at 16:33 dspell 04:33 PM Opsite applied dspell 04:33 PM Hematoma? No. dspell 04:33 PM Delay to floor No dspell 04:33 PM Time: 16:18LOC: 5 = Fully awake and oriented or at pre-proc level dspell 04:33 PM Complications: None dspell 04:33 PM Fluoro Time: 2.1 dsp 04:34 PM Isovue 370 - 200ml contrast [address] Bird. ell 04:34 PM Radiation Dose 236.79 mGy dspell 04:39 PM Patient out of room: 16:39 dspell 04:43 PM Report given to Hanane ROGERS [facility] Complication None None Hemodynamics Pressures Site Systolic/A Wave Diastolic/V Wave Mean AO 166 110 136 AO 158 120 138 AO 167 102 131 AO 165 105 132 LV 175 4 24 LV 167 4 20 AO 174 108 138 Post Procedure Information Blood Pressure: 165/101 mmHg Rhythm: NSR Closure Device Time Device Success/Fail 08/30/2017 4:43:00 PM Mechanical Compression Successful Site Checks Time Location Status Staff Sheath In? Note 04:33 PM Rt Wrist No bleeding/hematoma Christian Peraza RT (R) Pulses Time Site Pre-Procedure Post-Procedure Note Bilateral DP & PT 2+ Bilateral radial 2+ 4:32:00 PM Rt Radial 2+ Updated by Tonya Laughlin RT (R) on 08/30/2017 4:44:03 PM Tonya Laughlin RT electronically signed on 08/30/2017 4:44:43 PM with status of Final
[2017-08-30] MEDS ORDERED: *HR* OxyCODONE Immed Rel 5 MG TABLET PO ONE (17:10)
[2017-08-30] MEDS ORDERED: cloNIDine HCl 0.1 MG TABLET PO ONE (18:23)
[2017-08-30] MEDS: Ondansetron 4 MG/2 ML VIAL IVP PRN (19:02)
[2017-08-31] MEDS: *HR* LORazepam 2 MG/ML VIAL IVP PRN ×3 (00:11→08:12)
[2017-08-31] MEDS: Pregabalin 75 MG CAPSULE PO PRN (00:18)
[2017-08-31] MEDS: *HR* HYDROcodone/Acet 5/325 mg TABLET PO PRN ×2 (03:54→10:25)
[2017-08-31] MEDS: *HR* Heparin 5,000 UNIT/ML VIAL SQ SCH ×2 (06:48→12:47)
[2017-08-31 07:51] LABS: BUN/Creatinine Ratio 8 (6-26); Blood Urea Nitrogen 6 mg/dL (6-20); Calcium 9.1 mg/dL (8.6-10.3); Carbon Dioxide 23 mEq/L (23-29); Chloride 107 mEq/L (98-107); Chol/HDL Ratio 2.5 (0-4.9); Cholesterol 141 mg/dL (< 200); Glucose 97 mg/dL (70-105); HDL Cholesterol 56 mg/dL (40-59); LDL Cholesterol,Calculated 58 mg/dL (0-99); Osmolality,Calculated 280 (280-300); Potassium 3.6 mEq/L (3.5-5.1); Sodium 136 mEq/L (136-145); Triglycerides 133 mg/dL (< 150); eGFR For African Americans > 60 (> 60); eGFR For Non-African Americans > 60 (> 60)
[2017-08-31 07:53] LABS: Hemoglobin 10.6 g/dL (12.9-16.9); Mean Corpuscular HGB Conc 31.2 g/dL (31.6-35.5); Mean Corpuscular Hemoglobin 26.7 pg (28.0-33.3); Mean Corpuscular Volume 85.6 fL (83.0-100.0); Mean Platelet Volume 11.6 fL (9.4-12.4); Platelet Count 117 K/mcL (140-400); Red Blood Count 3.97 M/mcL (4.19-5.50); Red Cell Distribution Width 19.1 % (11.5-14.5)
[2017-08-31] MEDS: Thiamine (B-1) 100 MG TABLET PO SCH (08:09)
[2017-08-31] MEDS: Folic Acid 1 MG TABLET PO SCH (08:09)
[2017-08-31] MEDS: Aspirin Enteric Coated 81 MG Tablet PO SCH (08:09)
[2017-08-31] MEDS: Acetaminophen 325 MG TABLET PO PRN ×2 (08:11→14:14)
[2017-08-31] MEDS: Ondansetron 4 MG/2 ML VIAL IVP PRN (08:12)
--- NOTE | 2017-08-31 08:25 | Event Note ---
Date of Encounter: 08/31/17 Time of Encounter: 08:24 - Cardiology Event Note LHC yesterday minimal CAD. No intervention warranted. EF 55%. TTE still pending. Cardiology signing off. Reconsult PRN or if abnormal findings on echo. Continue ASA, Statin, BB.
[2017-08-31] MEDS: *HR* LORazepam 1 MG TABLET PO PRN ×2 (10:25→14:14)
[2017-08-31 11:16] VITALS: BP 150/107
--- NOTE | 2017-08-31 14:57 | Discharge Summary ---
Orders not resulted at time of discharge: Pending orders 08/28/17 21:29 NM mitzy perf SPECT multi [NM] Routine Date of Encounter: 08/31/17 Time of Encounter: 14:54 - Discharge Diagnosis (1) Alcohol intoxication Priority: Primary Status: Acute Comments: Daily drinker; patient reported drinking 20-16 ounce beers daily. Last drink day of arrival; BAL 321. Previous history of EtOH withdrawal with seizures. Monitored with [facility] while inpatient. Expresses desire to quit drinking. Transfer to [place] for inpatient alcohol treatment. Qualifiers: Complication of substance-induced condition: with delirium Qualified Code(s ): F10.921 - Alcohol use, unspecified with intoxication delirium (2) Chest pain Priority: Primary Status: Acute Comments: presented with chest pain and SOB. No Known CAD. serial troponin negative, EKG without acute ST changes. Stress test with fixed apical inferior wall defect with mild worsening during stress; mild reversible ischemia could not be excluded. 08/30/17 [facility] with minimal CAD; no intervention warranted. EF 55%. Cont ASA, BB, statin. Qualifiers: Chest pain type: unspecified Qualified Code(s): R07.9 - Chest pain, unspecified (3) Essential hypertension Priority: Primary Status: Acute Comments: per hx. BP uncontrolled, likely secondary to not having home medications. Cont home BB at higher dose. Recommend follow-up with PCP in 1-2 weeks for BP recheck (4) Altered mental status Priority: Primary Status: Resolved Comments: Secondary to acute alcohol intoxication. Head CT non-acute. Mentation improved to baseline. No further workup indicated. Qualifiers: Altered mental status type: delirium Qualified Code(s): R41.0 - Disorientation, unspecified Hospital course: See assessment and plan for Hospital course Discharge discussed with: patient (Seen and examined at bedside. Still feels like he is having withdrawal symptoms but overall improved. Says he was confused last night but improved this morning. No further chest pain or shortness of breath. Plan is for discharge to [place] inpatient rehabilitation.) - Time Spent with Patient Total time spent providing and/or coordinating discharge services: Less than 30 minutes - Discharge Medications Prescriptions: Aspirin Enteric Coated [Aspirin EC] 81 mg PO DAILY #30 tablet. Atorvastatin [Lipitor] 10 mg PO HS #30 tablet Carvedilol [Coreg] 25 mg PO BIDWM #60 tablet Folic Acid 1 mg PO DAILY #30 tablet Thiamine (B-1) [Vitamin B-1] 100 mg PO DAILY #30 tablet Home Medications: Pregabalin [Lyrica] 75 mg PO BID PRN 08/28/17 [History] Aspirin Enteric Coated [Aspirin EC] 81 mg PO DAILY #30 tablet. 08/31/17 [Rx] Atorvastatin [Lipitor] 10 mg PO HS #30 tablet 08/31/17 [Rx] Carvedilol [Coreg] 25 mg PO BIDWM #60 tablet 08/31/17 [Rx] Folic Acid 1 mg PO DAILY #30 tablet 08/31/17 [Rx] Thiamine (B-1) [Vitamin B-1] 100 mg PO DAILY #30 tablet 08/31/17 [Rx] Allergies/Adverse Reactions: 3 Allergy/AdvReac Type Severity Reaction Status Date / Time amlodipine AdvReac See Verified 08/28/17 15:04 Comments sumatriptan [From Imitrex] AdvReac See Verified 08/28/17 15:04 Comments Date of admission: 08/28/17 20:17 Primary care physician: PCP NONE Consults: 08/28/17 21:30 Consult to Investment Counselor [CONS] Routine Reason for SW Consult: Alcohol dependence 08/29/17 14:40 Consult to Cardiology [CONS] Routine Comment: Consulting Provider: Cardiology Geri Reason for Consult: Abnormal stress test Call Completed: Yes Discharging clinician: Wilma Potter Anticipated date of discharge: 08/31/17 - Constitutional Vitals: Temp Pulse Resp BP Pulse Ox 97.6 F 81 20 150/107 89 08/31/17 11:00 08/31/17 07:28 08/31/17 11:00 08/31/17 11:00 08/31/17 11:00 General appearance: Present: cooperative, A&O X 3, answers questions appropriately - Head Head exam: Present: atraumatic, normocephalic - Eye Eye exam: Present: PERRL, conjuntiva pink, sclera anicteric Pupils: Present: PERRL - Neck Neck exam general surgery: Present: supple, trachea midline. Absent: lymphadenopathy - Respiratory Respiratory exam: Present: CTAB. Absent: accessory muscle use, rales, rhonchi, wheezes - Cardiovascular Cardiovascular exam: Present: RRR, +S1, +S2. Absent: diastolic murmur, gallop, rubs, systolic murmur - GI/Abdominal GI/Abdominal exam: Present: normal bowel sounds, soft, no peritoneal signs. Absent: distended, tenderness - Extremities Exam Extremities exam: Present: warm, radial pulses palpable and symmetrical. Absent : calf tenderness, cyanotic, pedal edema - Neurological Exam Neurological exam: Present: CN II-XII intact, oriented X3, no focal deficits. Absent: pronater drift, facial droop, speech deficit - Skin Skin exam: Present: dry, intact - Patient Status Disposition: Home, Self-Care Condition: Good Functional capacity at discharge: independent ambulation Overall status at discharge: patient is progressing back to baseline - Discharge Instructions Instructions: Hypertension (DC), Alcohol Dependence (GEN) Follow Up With: NONE,PCP [Primary Care Provider] - () Ever Valdez MD [Family Provider] - (Please follow-up with your primary care provider within 1-2 weeks for BP recheck) - Diet and Activity Activity: increase activity as tolerated Diet: low fat, low cholesterol
== END 2017-08-31 15:26 | disposition home or self-care (01) ==
LOC: EMEROO 15:01 → 3BNU 15:01
PROVIDERS: ADMIT Family Medicine; ATTEND Registered Nurse